=== PATIENT | female | born 1995 | race Two or more races ===

== ENCOUNTER 2016-12-29 00:43 | Emergency (ER) | payer MEDICAID ==
[~2016-12-29] VITALS: Ht 154.9 cm; Wt 66.7 kg
[2016-12-29 01:10] VITALS: BP 108/71
[2016-12-29 01:51] LABS: APPEARANCE,URINE CLEAR; KETONES,URINE NEGATIVE (NEGATIVE); LEUKOCYTE ESTERASE ,URINE 3+ (NEGATIVE); NITRITE,URINE NEGATIVE (NEGATIVE); PH,URINE 6 (4.5-8.0); PROTEIN,URINE NEGATIVE (NEGATIVE); UROBILINOGEN,URINE NORMAL MG/DL (0.0-1.0)
[2016-12-29 01:54] LABS: BASOPHILS % (AUTO) 0.8 % (0.0-2.0); EOSINOPHILS % (AUTO) 1.3 % (0.0-3.0); MEAN CORPUSCULAR HEMOGLOBIN 30.9 PG (27.0-31.0); MEAN CORPUSCULAR HGB CONC 33.1 G/DL (32.0-36.0); MEAN CORPUSCULAR VOLUME 94 FL (80-99); MEAN PLATELET VOLUME 6.9 FL (6.5-10.1); PLATELET COUNT 226 K/UL (150-450); RED BLOOD COUNT 3.71 M/UL (4.20-5.40); RED CELL DISTRIBUTION WIDTH 11.4 % (11.6-14.8); WHITE BLOOD COUNT 11.5 K/UL (4.8-10.8)
[2016-12-29 02:02] LABS: INR 0.9 (0.9-1.1); PROTHROMBIN TIME 9.4 SEC (9.30-11.50)
[2016-12-29 02:10] LABS: BACTERIA,URINE MANY /HPF; SQUAMOUS EPITHELIAL CELL,UR MODERATE /LPF (NONE/OCC)
[2016-12-29 02:45] LABS: ALANINE AMINOTRANSFERASE 8 U/L (3-33); ANION GAP 14 (5-15); ASPARTATE AMINO TRANSFERASE 13 U/L (5-40); CALCIUM 9.4 mg/dL (8.6-10.2); CARBON DIOXIDE 22 mEQ/L (20-30); CHLORIDE 101 mEQ/L (98-107); CREATININE 0.5 mg/dL (0.5-0.9); GLOMERULAR FILTRATION RATE > 60 mL/min (>60); HEMOLYSIS 4; LIPASE 36 U/L (< 60); POTASSIUM 3.8 mEQ/L (3.4-4.9); SODIUM 137 mEQ/L (135-145); TOTAL PROTEIN 7.2 g/dL (6.6-8.7)
--- NOTE | 2016-12-29 02:53 | Emergency Room Report ---
History of Present Illness General Chief Complaint: OB/Uterine Contractions Source: Patient Present Illness HPI Patient 17 weeks IUP. Had ultrasound 2 days ago, but did not have pain at that time. This evening, she started having suprapubic pain - like cramps. No vaginal bleeding. No dysuria. Some pain in lower back, but more anterior. Not take any medications. Pain is 5/10, mostly constant, but sometimes slightly worse. No fevers, NVD, dyspnea, chest pain. On vits, but did not take this AM. She had a miscarriage at age 15. The pain was much more severe at that time than this. She does not know blood type. Allergies: Coded Allergies: No Known Allergies (Unverified , 12/29/16) Patient History Past Medical History: see triage record Social History: Denies: smoking Social History Narrative with sig other Last Menstrual Period: AUGUST 2016 Now: Yes - 17 WEEKS : 2 Para: 0 Reviewed Nursing Documentation: PMH: Agreed, PSxH: Agreed Nursing Documentation-PMH Past Medical History: No History, Except For Review of Systems All Other Systems: negative except mentioned in HPI Physical Exam Vital Signs Date Time Temp Pulse Resp B/P Pulse Ox O2 Delivery O2 Flow Rate FiO2 12/29/16 01:01 98.1 85 16 108/71 100 Room Air Sp02 EP Interpretation: reviewed, normal General Appearance: well appearing, no apparent distress, GCS 15 Head: normocephalic Eyes: bilateral eye PERRL, bilateral eye normal inspection ENT: moist mucus membranes Neck: supple Respiratory: lungs clear, normal breath sounds Cardiovascular #1: regular rate, rhythm Cardiovascular #2: 2+ radial (R) Gastrointestinal: normal inspection, normal bowel sounds, non tender, non- distended, tenderness - minimal suprapubic Genitourinary: no CVA tenderness, deferred - for ultrasound Musculoskeletal: back normal, gait/station normal, normal range of motion Neurologic: alert, oriented x3, grossly normal Psychiatric: anxious Skin: normal inspection, warm/dry Medical Decision Making Diagnostic Impression: Primary Impression: Abdominal pain Qualified Codes: R10.30 - Lower abdominal pain, unspecified Additional Impressions: 17 weeks intrauterine UTI (urinary tract infection) Qualified Codes: N30.00 - Acute cystitis without hematuria ER Course 17 weeks with abd pain. DDx: threatened miscarriage, torsion, UTI, constipation amongst others. Evaluation with UA, labs and ultrasound. Treatment with IV hydration and tylenol. Labs with UTI. O+ blood, quant 8549. Ultrasound, no torsion, slight ovarian cysts L (where pain is), FHT 163, movement. Patient states improved (though reports still 5/10 pain to RN). Discussed possible miscarriage, though could be related to ovarian cyst and UTI. Patient stable for outpatient observation and treatment. Laboratory Tests Test 12/29/16 01:35 12/29/16 02:20 White Blood Count 11.5 K/UL (4.8-10.8) H Red Blood Count 3.71 M/UL (4.20-5.40) L Hemoglobin 11.5 G/DL (12.0-16.0) L Hematocrit 34.7 % (37.0-47.0) L Mean Corpuscular Volume 94 FL (80-99) Mean Corpuscular Hemoglobin 30.9 PG (27.0-31.0) Mean Corpuscular Hemoglobin Concent 33.1 G/DL (32.0-36.0) Red Cell Distribution Width 11.4 % (11.6-14.8) L Platelet Count 226 K/UL (150-450) Mean Platelet Volume 6.9 FL (6.5-10.1) Neutrophils (%) (Auto) 65.0 % (45.0-75.0) Lymphocytes (%) (Auto) 26.0 % (20.0-45.0) Monocytes (%) (Auto) 7.0 % (1.0-10.0) Eosinophils (%) (Auto) 1.3 % (0.0-3.0) Basophils (%) (Auto) 0.8 % (0.0-2.0) Prothrombin Time 9.4 SEC (9.30-11.50) Prothrombin Time INR 0.9 (0.9-1.1) PTT 26 SEC (23-33) Urine Color Pale yellow Urine Appearance Clear Urine pH 6 (4.5-8.0) Urine Specific Maple 1.025 (1.005-1.035) Urine Protein Negative (NEGATIVE) Urine Glucose (UA) Negative (NEGATIVE) Urine Ketones Negative (NEGATIVE) Urine Occult Blood 2+ (NEGATIVE) H Urine Nitrite Negative (NEGATIVE) Urine Bilirubin Negative (NEGATIVE) Urine Urobilinogen Normal MG/DL (0.0-1.0) Urine Leukocyte Esterase 3+ (NEGATIVE) H Urine RBC 2-4 /HPF (0 - 2) H Urine WBC 5-10 /HPF (0 - 2) H Urine Squamous Epithelial Cells Moderate /LPF (NONE/OCC) H Urine Bacteria Many /HPF (NONE) H Sodium Level 137 mEQ/L (135-145) Potassium Level 3.8 mEQ/L (3.4-4.9) Chloride Level 101 mEQ/L (98-107) Carbon Dioxide Level 22 mEQ/L (20-30) Anion Gap 14 (5-15) Blood Urea Nitrogen 9 mg/dL (7-23) Creatinine 0.5 mg/dL (0.5-0.9) Estimate Glomerular Filtration Rate > 60 mL/min (>60) Glucose Level 94 mg/dL (74-106) Calcium Level 9.4 mg/dL (8.6-10.2) Total Bilirubin < 0.2 mg/dL (0.0-1.2) Aspartate Amino Transferase (AST) 13 U/L (5-40) Alanine Aminotransferase (ALT) 8 U/L (3-33) Alkaline Phosphatase 69 U/L (35-104) Total Protein 7.2 g/dL (6.6-8.7) Albumin 3.6 g/dL (3.5-5.2) Globulin 3.6 g/dL Albumin/Globulin Ratio 1.0 (1.0-2.7) Lipase 36 U/L (< 60) Human Chorionic Gonadotropin, Quant Pending CT/MRI/US Diagnostic Results CT/MRI/US Diagnostic Results : Imaging Test Ordered: pelvic U/S Impression 17 weeks IUP, ovarian cyst, pedal heart tones 165 Last Vital Signs Date Time Temp Pulse Resp B/P Pulse Ox O2 Delivery O2 Flow Rate FiO2 12/29/16 04:15 98.3 79 18 115/79 100 Room Air Status: improved Disposition: HOME, SELF-CARE Condition: Improved Scripts Nitrofurantoin Monohyd/M-Cryst* (MACROBID 100 MG*) 100 Mg Capsule 100 MG ORAL EVERY 12 HOURS, #14 CAP Prov: James aCin M.D. 12/29/16 Acetaminophen (Tylenol) 325 Mg Tablet 650 MG ORAL Q6H Y for Prn Pain/Headache/Temp > 101, #30 TAB 0 Refills Prov: James Cain M.D. 12/29/16 Referrals: NOT CHOSEN CRESENCIO/,REFERRING (PCP) James Cain M.D. Dec 29, 2016 02:53
[2016-12-29] MEDS ORDERED: TYLENOL325 MG ORAL (02:56)
[2016-12-29 03:10] VITALS: BP 118/78
[2016-12-29] MEDS ORDERED: NITROFURANTOIN100 M2 ORAL (04:01)
[2016-12-29 04:15] VITALS: BP 115/79
== END 2016-12-29 04:15 | disposition home or self-care (01) ==
LOC: EMR 00:55
DX: O23.42 Unspecified infection of urinary tract in pregnancy, second trimester (principal); R10.30 Lower abdominal pain, unspecified; O34.82 Maternal care for other abnormalities of pelvic organs, second trimester; Z3A.17 17 weeks gestation of pregnancy
CPT/HCPCS: 36415; 76805; 80053; 81003; 83690; 84702; 85025; 85610; 85730; 86850; 86900; 86901; 87086; 96374; 96375

== ENCOUNTER 2017-02-10 22:59 | Emergency (ER) | payer MEDICAID ==
[~2017-02-10] VITALS: Ht 154.9 cm; Wt 68.9 kg
[~2017-02-10 22:59] MED LIST: NITROFURANTOIN100 M2 ORAL; TYLENOL325 MG ORAL
--- NOTE | 2017-02-10 23:26 | Emergency Room Report ---
History of Present Illness General Chief Complaint: Headache Source: Patient Present Illness HPI Is a 21-year-old female who is 23 weeks . She presents with chief complaint of headache, cough, sore throat. Onset today. Denies any fever or chills. Denies any nausea vomiting. Because of her , she wanted to make sure what she can take. Good movement per patient. Allergies: Coded Allergies: No Known Allergies (Unverified , 12/29/16) Patient History Past Medical History: none, see triage record, old chart reviewed Past Surgical History: none Pertinent Family History: none Social History: Denies: alcohol use Last Menstrual Period: August 2016 Now: No Immunizations: other Reviewed Nursing Documentation: PMH: Agreed, PSxH: Agreed Review of Systems Eye: Denies: eye pain, blurred vision ENT: Reports: nose congestion, nasal discharge, Denies: ear pain, throat swelling Respiratory: Reports: cough, Denies: shortness of breath Cardiovascular: Denies: chest pain, palpitations Gastrointestinal: Denies: abdominal pain, diarrhea, nausea, vomiting Musculoskeletal: Denies: back pain, joint pain Skin: Denies: rash Neurological: Denies: headache, numbness Endocrine: Denies: increased thirst, increased urine Hematologic/Lymphatic: Denies: easy bruising All Other Systems: negative except mentioned in HPI Physical Exam Vital Signs Date Time Temp Pulse Resp B/P (MAP) Pulse Ox O2 Delivery O2 Flow Rate FiO2 02/10/17 23:09 98.4 96 16 114/69 98 Room Air vitals normal Sp02 EP Interpretation: reviewed, normal General Appearance: well appearing, no apparent distress, alert Head: normocephalic, atraumatic Eyes: bilateral eye PERRL, bilateral eye EOMI ENT: hearing grossly normal, normal pharynx, uvula midline - Enlarged Neck: full range of motion, supple, no meningismus Respiratory: chest non-tender, lungs clear, normal breath sounds Cardiovascular #1: regular rate, rhythm, systolic murmur - 2/6 Gastrointestinal: normal bowel sounds, non tender, no mass, no organomegaly, no bruit, non-distended Musculoskeletal: back normal, gait/station normal, normal range of motion Psychiatric: mood/affect normal Skin: warm/dry Medical Decision Making Diagnostic Impression: Primary Impression: Viral illness ER Course Patient with a viral illness. No evidence of bacterial infection. No evidence of meningitis. We'll discharge home with reassurance. She has a flow murmur this can be worked up as an outpatient. Last Vital Signs Date Time Temp Pulse Resp B/P (MAP) Pulse Ox O2 Delivery O2 Flow Rate FiO2 02/10/17 23:09 98.4 96 16 114/69 98 Room Air Status: unchanged Disposition: HOME, SELF-CARE Condition: Stable Additional Instructions: Followup with your Dr. in 7 days. You may take Tylenol for headache and fever. Return if symptom worsen. ROSIE SAEZ M.D. Feb 10, 2017 23:26
[2017-02-10 23:30] VITALS: BP 114/69
[2017-02-10] MEDS ORDERED: Acetaminophen 500mg (ES) tab ORAL ONE (23:30)
== END 2017-02-10 23:30 | disposition home or self-care (01) ==
LOC: EMR 23:24
DX: O98.512 Other viral diseases complicating pregnancy, second trimester (principal); Z3A.23 23 weeks gestation of pregnancy
CPT/HCPCS: 99283

== ENCOUNTER 2017-05-05 02:17 | Emergency (ER) | payer MEDICAID ==
[~2017-05-05] VITALS: Ht 154.9 cm; Wt 77.1 kg
[2017-05-05 02:39] VITALS: BP 116/74
--- NOTE | 2017-05-05 03:48 | Emergency Room Report ---
History of Present Illness General Chief Complaint: Complications Source: Patient Present Illness HPI 21-year-old female , 35 weeks , presenting with abdominal cramping. Patient states that she has had some nausea throughout her , denies any current vomiting. States that crampings her stay, points to lower area. Denies any fever chills current nausea vomiting diarrhea constipation. No abnormal vaginal bleeding. States her last sonogram was performed for days ago which showed IUP with no abnormalities Allergies: Coded Allergies: No Known Allergies (Unverified , 12/29/16) Patient History Past Medical History: see triage record Past Surgical History: none Pertinent Family History: none Last Menstrual Period: unk Reviewed Nursing Documentation: PMH: Agreed, PSxH: Agreed Review of Systems All Other Systems: negative except mentioned in HPI Physical Exam Vital Signs Date Time Temp Pulse Resp B/P (MAP) Pulse Ox O2 Delivery O2 Flow Rate FiO2 05/05/17 02:18 97.9 105 16 116/74 97 Room Air Sp02 EP Interpretation: reviewed, normal General Appearance: normal inspection, well appearing, no apparent distress, alert, GCS 15, non-toxic Head: normocephalic, atraumatic Eyes: bilateral eye normal inspection, bilateral eye PERRL, bilateral eye EOMI ENT: normal ENT inspection, normal pharynx, normal voice, moist mucus membranes Neck: normal inspection, full range of motion, supple Respiratory: normal inspection, lungs clear, normal breath sounds, no respiratory distress, no retraction, no wheezing, speaking full sentences, chest symmetrical Cardiovascular #1: normal inspection, regular rate, rhythm, no edema, normal capillary refill Cardiovascular #2: 2+ radial (R), 2+ radial (L) Gastrointestinal: soft, non-distended, other - Gravid, nontender abdomen Musculoskeletal: normal inspection, back normal, normal range of motion, non- tender Neurologic: normal inspection, alert, oriented x3, responsive, motor strength/ tone normal, sensory intact, normal gait, speech normal Psychiatric: normal inspection, judgement/insight normal, memory normal Skin: normal inspection, normal color, no rash, warm/dry, well hydrated, normal turgor Medical Decision Making Diagnostic Impression: Primary Impression: Abdominal pain during ER Course 21-year-old female, 35 weeks , abdominal pain Differential Diagnosis: Gastritis, gastroenteritis, cholecystitis, appendicitis, diverticulitis,, UTI/ pyelo, complications such as placenta abruption however unlikely as patient did not appear to be in any pain, and abdomen is nontender Plan: Labs, UCG, beta hCG, pelvic ultrasound ER course: Upon arrival, patient did not appear to be in pain, stated that she wanted to go to the emergency room that had [employer] services Refused workup, left AMA Disposition: Patient is clinically sober, is free from from distracting injury, and has intact judgement and capacity to decide to leave against medical advice. Patient came in for abdominal pain and Patient verbalized understanding of my concern and my need to do labs, pelvic ultrasound, but patient states "I would like to go to an hospital with [employer] " . I explained to patient the risks of leaving AMA and patient informed that if they leave, they could get worse, ould become become critically ill, possibly become disabled or . Patient verbalized back to me understanding of these risks but still wants to leave. Patient stated that she will go to [facility] immediately Please note that this Emergency Department Report was dictated using [employer] technology software, occasionally this can lead to erroneous entry secondary to interpretation by the dictation equipment Last Vital Signs Date Time Temp Pulse Resp B/P (MAP) Pulse Ox O2 Delivery O2 Flow Rate FiO2 05/05/17 02:39 97.9 16 116/74 97 Room Air 05/05/17 02:18 105 Disposition: AGAINST MEDICAL ADVICE Condition: Stable Patient Instructions: Abdominal Pain During Additional Instructions: PLEASE FOLLOW UP WITH OBGYN WITHIN 12 HOURS Gretchen Corbett M.D. May 05, 2017 03:47
== END 2017-05-05 02:40 | disposition left against medical advice (07) ==
LOC: EMR 02:33
DX: O26.893 Other specified pregnancy related conditions, third trimester (principal); Z3A.35 35 weeks gestation of pregnancy; R10.9 Unspecified abdominal pain; R11.0 Nausea
CPT/HCPCS: 99282